=== PATIENT | male | born 1955 | race African-American/Black ===

== ENCOUNTER 2018-03-17 22:08 | Emergency (ER) | payer MEDICAID ==
[~2018-03-17] VITALS: Ht 177.8 cm; Wt 63.5 kg
[~2018-03-17 22:08] MED LIST: ASPIRIN81 MG ORAL
[2018-03-17 22:33] VITALS: BP 142/72
[2018-03-17] MEDS ORDERED: HYDROCHLOROTHIA25 MG ORAL (22:43)
[2018-03-17 23:00] VITALS: BP 141/74
[2018-03-17 23:05] VITALS: BP 142/72
--- NOTE | 2018-03-18 02:25 | Emergency Room Report ---
History of Present Illness General Chief Complaint: Abdominal Pain Source: Patient Present Illness HPI Patient is a 62-year-old male brought in by walk-in after increased abdominal pain. Patient reports having increased abdominal distention. Prior history of ascites. Patient previously had paracentesis performed. Patient was noted to have prior history of cancer. He was noted to have some slight increase in abdominal distention. He denies any vomiting or fever. Allergies: Coded Allergies: IBUPROFEN (Verified Allergy, Unknown, 03/17/18) Patient History Past Medical History: see triage record Reviewed Nursing Documentation: PMH: Agreed; PSxH: Agreed Nursing Documentation-PMH Past Medical History: No History, Except For Hx Cancer: Yes - rectal ca Hx Gastrointestinal Problems: Yes - Rectal cancer 2011 Review of Systems All Other Systems: negative except mentioned in HPI Physical Exam Vital Signs Date Time Temp Pulse Resp B/P (MAP) Pulse Ox O2 Delivery O2 Flow Rate FiO2 03/17/18 22:12 97.7 113 20 142/93 98 Room Air General Appearance: well appearing, no apparent distress, alert, GCS 15, non- toxic, Chronically Ill Head: normocephalic, atraumatic ENT: hearing grossly normal, normal voice Neck: full range of motion, supple Respiratory: no respiratory distress, speaking full sentences Cardiovascular #1: edema Gastrointestinal: other - fluid wave , no tense ascites Musculoskeletal: normal inspection, no calf tenderness Neurologic: normal inspection, alert, oriented x3, responsive, normal gait Psychiatric: mood/affect normal Skin: no rash Medical Decision Making Diagnostic Impression: Primary Impression: Ascites ER Course Patient presented for abdominal pain. Differential diagnoses included spontaneous bacterial peritonitis, ischemic bowel, appendicitis, perforated viscus, abdominal aortic aneurysm, inferior myocardial infarction, viral gastroenteritis. Patient has a benign exam and does not appear to require any further imaging or laboratory testing at this time. The patient was given oral diuretics. The patient is given prescriptions for further diuretics. He does not appear to have tense ascites requiring therapeutic tap. The patient was advised to check blood pressure prior taking diuretics. He is advised to recheck with his primary care physician in the next few days. He is return if any worsening condition or other concerns. Last Vital Signs Date Time Temp Pulse Resp B/P (MAP) Pulse Ox O2 Delivery O2 Flow Rate FiO2 03/17/18 23:05 97.9 100 20 142/72 98 Room Air Status: improved Disposition: HOME, SELF-CARE Condition: Stable Scripts Hydrochlorothiazide* (HYDROCHLOROTHIAZIDE*) 25 Mg Tablet 25 MG ORAL DAILY, #20 TAB Prov: Misael Kilgore MD 03/17/18 Patient Instructions: Ascites Additional Instructions: Follow up with your doctors. Return if worse Misael Kilgore MD Mar 18, 2018 02:25
== END 2018-03-17 23:03 | disposition home or self-care (01) ==
LOC: EMR 22:31
DX: R18.8 Other ascites (principal); R10.9 Unspecified abdominal pain; Z85.048 Personal history of other malignant neoplasm of rectum, rectosigmoid junction, and anus; Z88.6 Allergy status to analgesic agent
CPT/HCPCS: 99283